=== PATIENT | female | born 1955 | race Caucasian/White ===

== ENCOUNTER 2021-04-05 13:48 | Outpatient (CLI) | payer BC | END 2021-04-05 13:49 | disposition home or self-care (01) | LOC: CSHMRI 13:48 | PROVIDERS: ATTEND Internal Medicine Gastroenterology | DX: K76.89 Other specified diseases of liver (principal); N28.1 Cyst of kidney, acquired; I31.3 Pericardial effusion (noninflammatory); J90 Pleural effusion, not elsewhere classified | CPT/HCPCS: 74183; 82565 ==

== ENCOUNTER 2022-04-18 12:05 | Outpatient (CLI) | payer BC | END 2022-04-18 12:06 | disposition home or self-care (01) | LOC: CSHMAMMO 12:05 | DX: Z12.31 Encounter for screening mammogram for malignant neoplasm of breast (principal); Z80.3 Family history of malignant neoplasm of breast | CPT/HCPCS: 77063; 77067 ==